=== PATIENT | female | born 1950 | race Caucasian/White ===

== ENCOUNTER → 2016-06-22 | Outpatient (CLI) | payer OTHER ==
--- NOTE | 2016-06-22 19:23 | DX ---
DEXA Bone Mineral Densitometry Clinical Indications: 65-year-old female who went through menopause at age 48. Her mother had osteopo rosis and a fractured hip. The patient exercises 5 to 6 hours per week. Evaluate for estrogen deficie ncy, and screen for osteoporosis. ICD 10 Diagnostic Code: Z00.01. Comparison: Dictated report of a DEXA scan, dated January 17, 2004 (images have been purged). Technique: Bone Mineral Densitometry (BMD) by Dual Energy X-Ray Absorptiometry (DEXA) was performed utilizing the [employer] scanner. The lumbar spine was evaluated in the AP projection. Both hips and the left forearm were evaluated in the AP projection. Vertebral fracture assessment was also per formed. A FRAX score was calculated. AP Lumbar Spine: The L1, L2, L3 and L4 vertebral bodies were evaluated. BMD: 1.189 gm/cm2 T-score: 0.0 SD Z-score: 1.9 SD AP Left Hip: Femoral Neck BMD: 0.896 gm/cm2 T-score: -1.0 SD Z-score: 0.7 SD AP Right Hip: Femoral Neck BMD: 0.909 gm/cm2 T-score: -0.9 SD Z-score: 0.8 SD AP Left Forearm, 06/16: BMD: 0.718 gm/cm2 T-score: -1.8 SD* Z-score: -0.4 SD Vertebral Fracture Assessment: There is no significant fracture deformity. FRAX Score: The 10 year probability for any major osteoporotic fracture is 20.5%, and for a hip fract ure is 1.1%. Conclusion: Considering the lowest measured site, the patient is moderately osteopenic* (low bone min eral density). On the prior study in 2003, the patient's bone mineral density was within normal range . Any bone loss in this patient is probably related to aging or estrogen deficiency. Recommendations: To prevent osteoporosis and to promote bone density, consider the following recommendations: 1. Continue to pursue a regular regimen of weightbearing and muscle-strengthening exercises in order to reduce the risk of falls and fracture (as tolerated by the patient's general medical condition). 2. Ensure that total daily calcium intake is at least 1500 mg (diet plus supplements). 3. Check serum hydroxy vitamin D3 (normal >30ng/ml). 4. Ensure daily intake of vitamin D is 800 international units. 5. Consider follow up DEXA scan in two years to assess the rate of bone loss in this patient. 6. Because of the asymmetric involvement of the left forearm, it may be worthwhile to exclude hyperp arathyroidism. Assessment of the patient's serum calcium and parathormone levels may be of benefit.
== END ==
LOC: BRMIMAGING 13:29
PROVIDERS: ATTEND Internal Medicine
DX: Z13.820 Encounter for screening for osteoporosis (principal); Z78.0 Asymptomatic menopausal state; M85.80 Other specified disorders of bone density and structure, unspecified site

== ENCOUNTER → 2016-07-21 | Outpatient (CLI) | payer OTHER ==
--- NOTE | 2016-07-22 09:24 | MR ---
MRI lower extremity, left knee History: Left knee pain. ICD 10 code M25.562 Comparison: Radiograph 19 May 2016 Technique: MRI was performed of the left knee using a 3 [employer] MRI system. Axial, sagittal, and michaels l images were obtained with standard imaging sequences. Findings: General: Moderate suprapatellar joint effusion. Benign cyst or interosseous ganglion the posterior ti bial plateau. Ligaments and Tendons: Anterior cruciate and posterior cruciate ligaments are intact and unremarkable . Mild edema seen superficial to the medial collateral ligament without attenuation. Mild edema along the pes anserinus. Mild edema between the iliotibial band and lateral femoral condyle. Mild abnormal signal intensity in the proximal fibular collateral ligament without attenuation. Biceps femoris is unremarkable. Popliteus tendon is intact. There is be a loose body or focal synovial proliferation al jia the musculotendinous junction of the popliteus measuring 5 mm.. Menisci and Cartilage: Degenerative signal is seen in the medial meniscus without definitive tear. Mi ld cartilage signal abnormality and thinning is seen in the posterior lateral articular margin of the medial femoral condyle. Degenerative signal is seen in the anterior horn lateral meniscus extending to the superior articular surface. Mild cartilage signal abnormality and minimal thinning is seen in the posterior weightbeari ng portion of the lateral tibial plateau. Extensor Mechanism: Cartilage signal abnormality and thinning is seen in the patellofemoral compartme nt. The thinning is more predominant in the lateral superior trochlear groove and lateral facet of th e patella with full-thickness cartilage loss. Reactive subarticular bone marrow edema. Quadriceps ten don and patellar tendon are unremarkable. Impression: 1. Small upper surface tear anterior horn lateral meniscus. Grade 1 to grade 2 articular cartilage di sease lateral compartment. 2. Grade 3 and grade 4 articular cartilages patellofemoral compartment more severe laterally. 3. Mild strain medial collateral ligament and distal pes anserinus. 4. Mild iliotibial band syndrome. Mild tendinopathy proximal fibular collateral ligament. 5. Moderate suprapatellar joint effusion. Loose body along the musculotendinous junction of the popli teus.
== END ==
LOC: FIMAGING 16:00
PROVIDERS: ATTEND Physician Assistant
DX: S83.282A Other tear of lateral meniscus, current injury, left knee, initial encounter (principal); M25.462 Effusion, left knee

== ENCOUNTER → 2016-08-20 | Outpatient (CLI) | payer OTHER | LOC: FIMAGING 09:59 | PROVIDERS: ATTEND Surgery | PROC: CG111ZZ Planar Nuclear Medicine Imaging of Parathyroid Glands using Technetium 99m (Tc-99m) (ICD-10-PCS; principal; 2016-08-20) | DX: R93.8 Abnormal findings on diagnostic imaging of other specified body structures (principal); E21.0 Primary hyperparathyroidism | CPT/HCPCS: 78070; A9500 ==